=== PATIENT | male | born 1990 | race Caucasian/White ===

== ENCOUNTER 2024-05-17 09:29 | Outpatient (REF) | payer OTHER, SELFPAY ==
--- OUTSIDE RECORDS SUMMARY | 2024-05-17 10:42 | XMS_ITS ---
Author Organization [facility] Address [address] [place] [address] Care Team Providers Care Hoist Mechanic Name Role Phone MEMO LEON Primary Care Provider Memo Leon Unavailable [phone] Medications Medication SIG (Take, Route, Frequency, Duration) Notes Start Date End Date Status Escitalopram Oxalate 10 MG 1 tablet Oral ly Once a day for 90 02/28/2023 Active Encounters Encounter Location Date Provider Diagnosis [facility] [address] [place] [address] 02/28/2023 MEMO LEON Plan Of Treatment Medication Medication Name Sig Start Date Stop Date Notes Escitalopram Oxalate 10 MG 1 tablet Oral ly Once a day for 90 02/28/2023 DULoxetine HCl 30 MG TAKE 1 CAPSULE BY M OUTH EVERY DAY FOR 30 DAYS Progress Notes * Paula WHEELEROB:1990 ( 32 yo M)Acc No.[id number]:02/28/2023 Patient:?Tomi Wheeler :1990???Age:32 Y???Sex:Male Address:[address] [place], [address] * Refills? Stop DULoxetine HCl Capsule Delayed Release Particles, 30 MG, TAKE 1 CAPSULE BY MOUTH EVERY DAY FOR 30 DAYS Start Escitalopram Oxalate Tablet, 10 MG, Orally, 90, 1 tablet, Once a day, 90 * true * Date:? Generated for Annette high/Zakiya/eTransmitting on:?05/17/2024 10:42 AM EST
--- OUTSIDE RECORDS SUMMARY | 2024-05-17 10:42 | XMS_ITS | Referral Summary ---
Author Organization [facility] Address [address] [place] [address] Care Team Providers Care District Wildlife Manager Name Role Phone Memo Leon Primary Care Provider [phone] Allergies No known active allergies Medications rizatriptan WEBSITE DEVELOPER (MAXALT-WEBSITE DEVELOPER) 10 mg disintegrating tablet SMARTSI Tablet(s) By Mouth 1-2 Times Daily 3 Active Emgality Pen 120 mg/mL pen injector SMARTSI Milliliter (s) SUB-Q Once a Month 3 Active Social History Tobacco Use Types Packs/Day Years Used Date Smoking Tobacco: Never Assessed Sex and Gender Information Value Date Recorded Sex Assigned at Not on file Legal Sex Male 8:34 AM EST Gender Identity Not on file Sexual Orientation Not on file Last Filed Vital Signs Vital Sign Reading Time Taken Comments Blood Pressure 131/79 03/08/2023 9:37 AM EST Pulse 79 03/08/2023 9:37 AM EST Temperature 37.1 ??C (98.7 ??F) 03/08/2023 9:37 AM ES T Respiratory Rate 18 03/08/2023 9:37 AM EST Oxygen Saturation 97% 03/08/2023 9:37 AM EST Inhaled Oxygen Concentration - - Weight - - Height - - Body Mass Index - - Plan of Treatment Not on file Insurance [facility] Care Teams District Wildlife Manager Relationship Specialty Start Date End Date Memo Leon [address] [place] [address] PCP - General Internal Medicine 03/08/23
--- OUTSIDE RECORDS SUMMARY | 2024-05-17 10:42 | XMS_ITS | Clinical Summary ---
Author Organization [facility] it Address [address] [place] [address] Care Team Providers Care Air Pollution Inspector Name Role Phone Memo Leon MD Primary Care Provider Social History Tobacco Use Types Packs/Day Years Used Date Smoking Tobacco: Never Assessed Sex and Gender Information Value Date Recorded Sex Assigned at Not on file Legal Sex Male 1:13 AM EST Gender Identity Not on file Sexual Orientation Not on file Last Filed Vital Signs Vital Sign Reading Time Taken Comments Blood Pressure 118/70 07/15/2022 2:49 PM EDT Pulse 78 07/15/2022 2:49 PM EDT Temperature - - Respiratory Rate - - Oxygen Saturation - - Inhaled Oxygen Concentration - - Weight 62.1 kg (137 lb) 07/15/2022 2:49 PM EDT Height 177.8 cm (5' 10 ) 07/15/2022 2:49 PM EDT Body Mass Index 19.66 07/15/2022 2:49 PM EDT Plan of Treatment Health Maintenance Due Date Last Done Comments DTaP,Tdap,and Td Vaccines (1 - Tdap) 2011 Hepatitis B Vaccines (1 of 3 - 19+ 3-dose series) 2011 Depression Screening 04/16/2023 HIV Screening 04/16/2023 Hepatitis C Screening 04/16/2023 Social Influencers of Health Screening 04/16/2023 COVID-19 Vaccine ( - 2023-2 5 season) 2023 Influenza Vaccine (#1) 2023 HIB Vaccines Aged Out No longer eligi ble based on patient's age to complete this topic HPV Vaccines Aged Out No longer eligi ble based on patient's age to complete this topic Hepatitis A Vaccines Aged Out No long er eligible based on patient's age to complete this topic IPV Vaccines Aged Out No longer eligi ble based on patient's age to complete this topic MMR Vaccines Aged Out No longer eligi ble based on patient's age to complete this topic Meningococcal ACWY Vaccine Aged Out N o longer eligible based on patient's age to complete this topic Meningococcal B Vacine Aged Out No lo nger eligible based on patient's age to complete this topic Pneumococcal Vaccine: Pediat rics (0 to 5 Years) and At-Risk Patients (6 to 64 Years) Aged Out No longer eligible b ased on patient's age to complete this topic RSV Immunization Patients Un cali 20 months Aged Out No longer eligible b ased on patient's age to complete this topic Varicella Vaccines Aged Out No longer eligible based on patient's age to complete this topic Care Teams Air Pollution Inspector Relationship Specialty Start Date End Date Memo Leon MD PCP - General 07/02/22
--- OUTSIDE RECORDS SUMMARY | 2024-05-17 10:42 | XMS_ITS | Clinical Summary ---
Author Organization [facility] Address [address] [place] [address] Care Team Providers Care Near Eastern Archaeology Lecturer Name Role Phone Ana Hester MD Primary Care Provider [phone] Allergies No known active allergies Medications Medication Sig Dispensed Refills Start Date End Date Status naproxen (NAPROSYN) 500 MG tablet Take 1 tablet (500 mg total) by mouth 2 (two) times a day with meals. 40 tablet 0 10/04/2017 Active methocarbamol (ROBAXIN) 750 MG tablet Take 1 tablet (750 mg total) by mouth 3 (three) times a day as needed (muscle spasm). 40 tablet 0 10/04/2017 Active Social History Tobacco Use Types Packs/Day Years Used Date Smoking Tobacco: Never Smokeless Tobacco: Never Alcohol Use Standard Drinks/Week Comments No 0 (1 standard drink = 0.6 oz pur e alcohol) Sex and Gender Information Value Date Recorded Sex Assigned at Not on file Gender Identity Not on file Sexual Orientation Not on file Last Filed Vital Signs Vital Sign Reading Time Taken Comments Blood Pressure 101/62 10/04/2017 4:01 PM EDT Pulse 53 10/04/2017 4:01 PM EDT Temperature 37 ??C (98.6 ??F) 10/04/2017 4:01 PM EDT Respiratory Rate 16 10/04/2017 4:01 PM EDT Oxygen Saturation 100% 10/04/2017 4:01 PM EDT Inhaled Oxygen Concentration - - Weight - - Height - - Body Mass Index - - Plan of Treatment Health Maintenance Due Date Last Done Comments Hepatitis B Vaccines (1 of 3 - 3-dose series) 1992 Hepatitis C Screening 1992 COVID-19 Vaccine (#1) 1992 Depression Screening 2004 Preventative Health Evaluation 2010 DTap / Tdap / Td (1 - Tdap) 2011 Influenza Vaccine (#1) 2023 Pneumococcal Vaccine Aged Out No long er eligible based on patient's age to complete this topic RSV Ped < 20 months Aged Out No longe r eligible based on patient's age to complete this topic Care Teams Near Eastern Archaeology Lecturer Relationship Specialty Start Date End Date Ana Hester MD [address] [facility] [address] [place] [address] PCP - General Ship Steward 10/04/17
--- OUTSIDE RECORDS SUMMARY | 2024-05-17 10:43 | XMS_ITS ---
Author Organization 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 Name Role Phone MEMO LEON Primary Care Provider [phone] Memo Leon Unavailable [phone] Allergies No Known Allergies REASON FOR VISIT ANNUAL Medications Medication SIG (Take, Route, Frequency, Duration) Notes Start Date End Date Status DULoxetine HCl 30 MG TAKE 1 CAPSULE BY M OUT EVERY DAY FOR 30 DAYS for 90 Active SUMAtriptan Succinate 6 MG/0.5ML as directed Subcutaneous Once a day for 30 days Active Vitamin D (Ergocalciferol) 19100 UNIT 1 capsule Orally for 60 days Active Medrol (Romulo) 4 MG as directed Orally 1 for 5 days Not-Taking Omeprazole 20 MG 1 capsule Orally Onc e a day for 90 days Active Propranolol HCl 20 MG 1 tablet Orally On ce a day Active Depakote 500 MG as directed Orally d aily at night 08/28/2022 Not-Taking Albuterol Sulfate HFA 108 (90 Base) MCG/ACT 2 puff Inhalation every 4 hrs prn prn Active LORazepam 0.5 MG 1 tablet as needed Orally every 6 hrs for 14 days 07/01/2022 Not-Taking Rizatriptan Benzoate 10 MG 1 tablet Once a day for 30 days Active Topock Carbonate 300 MG 1 tablet at bed time Orally Once a day Active Social History Tobacco Use: Social History Observation Description Date Details (start date - stop date) Current some da y smoker NA - NA Tobacco Use/Smoking Question Answer Notes Are you a current some day smoker Additional Findings: Tobacco User Light cigarett e smoker ((1-9 cigs/day) Alcohol Screen (Audit-C) Question Answer Notes Did you have a drink containing alcohol in the p ast year? No Points 0 Interpretation Negative Tobacco use other than smoking: Question Answer Notes Are you an other tobacco user? Yes Section Notes: Living with Hannah Tompkins for past 6 years. Met her on line . She is a professional invasive manager and has her own business.They have a daughter Danny born August 09, 2021. Live abel 2 family unit at [address] [place] [address] [place] [address] Pays 4950 rent plus utilities. Looking around to buy an affordable house Education: High School [employer] 2010. Took 2 yrs off. The moved to [facility] on Dec 2013 and did 90 hours of classes at [employer]. 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 Moved back to [place] in 2016 WORK Hx: Works at [employer] in [facility].[address] Leaves at 7.30 am and finishes at 6.15 pm . Works friday through . Gets paid $27/hour per job. Makes about $45K a year Hobbies: used to race dirtbikes . Played Lacrosse and basketball in school. Rode Mbikses Getting tattoos(all over body) Hanging outwith best friens from school Emigdio Reyes . Lives in [place] Single Has a son Tom Meek Personal HX: Smoked cigarettes from age 20 to 25 yr Quits Smokes MJ joints after coming from work. Admits to smoking heavily Uses the baer . Problems Problem Type SNOMED Code ICD Code Onset Dates Problem Status W/U Status Risk Notes Problem Chronic cluster headache (747787034) Intractable chronic cluster headache (G44.021) Active confirmed Saw neurologist Dr. Almanza on 07/08/22 He gave him Depakote ER and a course of tapering steroids. His neuro exam was unremarkable. 10/24/22 Will refill Rizatripan till he sees Dr Almanza on 11/04/22 Problem 99929318 Weight loss (R63.4) Active confirmed Problem 994579476 Early satiety (R68.81) Active confirmed Problem 408911173 Annual physical exam (Z00.00) Active confirmed Problem 54201005 Vitamin D deficiency (E55.9) Active confirmed Will send script for 50,000 units Vital Signs Temperature 98.7 degrees Fahrenheit 12/31/19 23 Blood pressure systolic 100 mm Hg 12/31/19 23 Blood pressure diastolic 60 mm Hg 023 Heart Rate 74 /min 12/30/2022 Height 70 in 12/30/2022 Weight 143 lbs 12/30/2022 BMI 20.52 kg/m2 12/30/2022 Oximetry 98 % 12/30/2022 Encounters Encounter Location Date Provider Diagnosis [facility] [address] [facility] [address] [place] [address] 12/30/2022 MEMO LEON Intractable chronic cluster headache G44.021 ; Annual physical exam Z00.00 ; Weight loss R63.4 ; Early satiety R68.81 and Vitamin D deficiency E55.9 Assessments Encounter Date Diagnosis (ICD Code) Assessment Notes Treatment Notes Treatment Clinical Notes Section Notes 12/30/2022 Intractable chronic cluster headache (ICD-10 - G44.021) Saw neurologist Dr. Almanza on 07/08/22 He gave him Depakote ER and a course of tapering steroids. His neuro exam was unremarkable. 10/24/22 Will refill Rizatripan till he sees Dr Almanza on 11/04/22 12/30/2022 Annual physical exam (ICD-10 - Z00.00) 12/30/2022 Weight loss (ICD-10 - R63.4) 12/30/2022 Early satiety (ICD-10 - R68.81) 12/30/2022 Vitamin D deficiency (ICD-10 - E55.9) Will send script for 50,000 units Plan Of Treatment Medication Medication Name Sig Start Date Stop Date Notes Vitamin D (Ergocalciferol) 43959 UNIT 1 capsule Orally for 60 days Omeprazole 20 MG 1 capsule Orally Onc e a day for 90 days Next Appt Details Follow Up: 3 Months, Reason: Progress Notes * Paula OLIVOOB:1990 ( 32 yo M)Acc No.[id number]:12/30/2022 Progress Notes Patient:?Tomi Olivo Provider:?Memo Leon MD :1990???Age:32 Y???Sex:Male Surya e:12/30/2022 Address:[address], [address], [id number] Subjective: * Chief Complaints: * ???ANNUAL * HPI: ???Depression Screening:?PHQ-9?Little interest or pleasure in doing things?Nearly every day ?Feeling down, depressed, or hopeless?Not at all ?Trouble falling or staying asleep, or sleeping too much?Several days ?Feeling tired or having little energy?Several days ?Poor appetite or overeating?Several days ?Feeling bad about yourself or that you are a failure, or have let yourself or your family down?Not at all ?Trouble concentrating on things, such as reading the newspaper or watching television?Several days ?Moving or speaking so slowly that other people could have noticed; or the opposite, being so fidgety or restless that you have been moving around a lot more than usual?Not at all ?Thoughts that you would be better off or of hurting yourself in some way?Not at all ?Total Score?7 ?Interpretation?Mild Depression ???New/Follow-up Patient Consult:? 12/30/22 Looking well. On Duloxetine one a day, Propranolol 20 mg. Topock Carbonate 10 mg . Has been tapering off the medicines Has had severe Gi upset with the daily 3 doses. Took the Emgality Injection last month on 12/02/[address] Almanza and gave hime samples of 2 injections.Also has Rizatriptin he uses prn He did not take the prednisone He felt migraine PHILLIP for 2 weeks Had 2-[address] Almanza today to grt the Emgality script.Has lost 5 lbs weight. Uses THC at night from a [facility] in [place]. ?10/24/22 Complaining of intractable migraine headaches Has appointment with neurologist Dr Almanza on 11/04/22 . Has ran out of Rizatriptan prescribed by his previous doctor Requesting refills till he sees Dr Almanza. ? Passed the exam. No more exam . Less stress now. On Depakote for a month and took the Prednisone tapering dose. Had amazing relief with that combination Had the best energy and could do things after the prednisone was stopped . his energy level came down. Saw Dr Almanza and he decreased the Depakote 500 mg at night as he was having some dizziness. Had 2 episodes of Migraine last week and had to take Rizatriptan. Had 2 minor PHILLIP also. Taking sertraline 100 mg. Feels it has stabilized his mood. Less anxious and doesnt get angry andirritable like before. I suggested he can try duloxetine which can also help his migraine. He is open to the trial .Ill send him 30 mg and he can up it to 60 mg if no side effects. I asked him to keep a PHILLIP diary and and ask Dr Almanza about prescribing him Emgalty injections. ?Went to [place], [place] for 5 days vacation with Niya and Danny(13 mnths) near the [facility] and also saw the eJamming fest. Enjoyed it. Still looking around to buy a house. Wants to come to the office at next visit. ?07/15/22 3rd encounter. saw neurologist Dr Almanza on 07/09/22 Diagnosed him with Cluster Hradache Syndrome. Started on Depakote ER and a tapering course of steroids. Reviewed his labs with him . All within normal limits. Has low Vitamin D only. Meds reviewed On Sertraline and Lorazepam started by me on last visit. Hasnt noticed any changes or side effects Told to double the dose. Lorazepam makes him feel tired Made him relax though prn. 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 I told him to just increase the sertraline to 100 mg and take Vitamin D3 2000 units supplement. After he finishes the exam he will stop the Topamax and start the Depakote and then the steroids I clayton call him after 4 weeks ?07/01/22 SEcond encounter. Pleasant male wearint shorts and T shirt Has visible tatoos on all his limbs. Had MRI [facility] Brain at [facility] . No significant change. Forgot to get the blood tests. Will get it done today. Went to [place] on June 17 to . Has not been getting he migraines as intense before 10/10 for an hour. Now the migraine is 4/10 and lingers all day. Using Topamax 25 mg bid. Uses Rizatriptan one every other day and gives relief after 30 minutes and gives relief for an hour. I looked at him and he looks depressed On questioning he did admit that he has lost interest in things he enjoyed Finds himself withdrawn andanxious. Sleeo is okay. Appetite is bad as he feels his stomach his hollow and he cannot eat. 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 Typicall preceded by white dots and followed by full blown headache. Mother has similar attacks, but gets them twice a year amelia. Older brother Deepak had similar ocular migraine PHILLIP in his teens but now he is asymtomatic. His PCP was Dr Ana Hester at [facility]. He had referred him to see a neurologist Dr Jose L Boston at [facility] he did an MRI brain at [facility] MRI on 08/11/2019 and it read as decent of the cerebellar tonsils 6 mm below the foramen magnum . It may reflect Chiari Malformation and differential includes idiopathic intracral hypotension. He was put on Topimarate 50 mg once a day which he has been taking daily in 2019 as he had the worse year of migraines . It did reduce his migraine episodes but he stopped it last year as he felt he had foggy brain and memory lapses and felt it was not giving him any benefit. He has been taking a selective serotonin receptor agonis Rizatriptan(Maxalt) 10 mg to gain relief. For the past two months the ocular migraineas been getting worse waking him up at night. He also restarted the anticonvulsant tomiramate(Topamax) recently when he had to travel for work to [place] and he was afraid he would not be able to work because of the headache . Lat night he had to take Maxalt after comimg back from work and also at night when he woke up from sleep with the headache. Dr. Boston has since retired and he wants to see a new neurologist. He noticed that tobacco use triggers the headache and he stopped it 7 years ago. He feels use of daily Marijuana smoking in form of rolling or vape provides him some relief. He doesnt use alcohol. He denies any use of recreatiol drugs or other OTC medications. Complaining of intractable migraine headaches Has appointment with neurologist Dr Almanza on 11/04/22 . Has ran out of Rizatriptan prescribed by his previous doctor Requesting refills till he sees Dr Almanza. ? Passed the exam. No more exam . Less stress now. On Depakote for a month and took the Prednisone tapering dose. Had amazing relief with that combination Had the best energy and could do things after the prednisone was stopped . his energy level came down. Saw Dr Almanza and he decreased the Depakote 500 mg at night as he was having some dizziness. Had 2 episodes of Migraine last week and had to take Rizatriptan. Had 2 minor PHILLIP also. Taking sertraline 100 mg. Feels it has stabilized his mood. Less anxious and doesnt get angry andirritable like before. I suggested he can try duloxetine which can also help his migraine. He is open to the trial .Ill send him 30 mg and he can up it to 60 mg if no side effects. I asked him to keep a PHILLIP diary and and ask Dr Almanza about prescribing him Emgalty injections. ?Went to [place], [place] for 5 days vacation with Jojo(13 mnths) near the [facility] and also saw the eJamming fest. Enjoyed it. Still looking around to buy a house. Wants to come to the office at next visit. ?07/15/22 3rd encounter. saw neurologist Dr Almanza on 07/09/22 Diagnosed him with Cluster Hradache Syndrome. Started on Depakote ER and a tapering course of steroids. Reviewed his labs with him . All within normal limits. Has low Vitamin D only. Meds reviewed On Sertraline and Lorazepam started by me on last visit. Hasnt noticed any changes or side effects Told to double the dose. Lorazepam makes him feel tired Made him relax though prn. 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 I told him to just increase the sertraline to 100 mg and take Vitamin D3 2000 units supplement. After he finishes the exam he will stop the Topamax and start the Depakote and then the steroids I clayton call him after 4 weeks ?07/01/22 SEcond encounter. Pleasant male wearint shorts and T shirt Has visible tatoos on all his limbs. Had MRI of Brain at [facility] . No significant change. Forgot to get the blood tests. Will get it done today. Went to [place] on June 17 to . Has not been getting he migraines as intense before 10/10 for an hour. Now the migraine is 4/10 and lingers all day. Using Topamax 25 mg bid. Uses Rizatriptan one every other day and gives relief after 30 minutes and gives relief for an hour. I looked at him and he looks depressed On questioning he did admit that he has lost interest in things he enjoyed Finds himself withdrawn andanxious. Sleeo is okay. Appetite is bad as he feels his stomach his hollow and he cannot eat. 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 Typicall preceded by white dots and followed by full blown headache. Mother has similar attacks, but gets them twice a year amelia. Older brother Deepak had similar ocular migraine PHILLIP in his teens but now he is asymtomatic. His PCP was Dr Ana Hester at [facility]. He had referred him to see a neurologist Dr Jose L Boston at [facility] he did an MRI brain at [facility] MRI on 08/11/2019 and it read as decent of the cerebellar tonsils 6 mm below the foramen magnum . It may reflect Chiari Malformation and differential includes idiopathic intracral hypotension. He was put on Topimarate 50 mg once a day which he has been taking daily in 2019 as he had the worse year of migraines . It did reduce his migraine episodes but he stopped it last year as he felt he had foggy brain and memory lapses and felt it was not giving him any benefit. He has been taking a selective serotonin receptor agonis Rizatriptan(Maxalt) 10 mg to gain relief. For the past two months the ocular migraineas been getting worse waking him up at night. He also restarted the anticonvulsant tomiramate(Topamax) recently when he had to travel for work to [place] and he was afraid he would not be able to work because of the headache . Lat night he had to take Maxalt after comimg back from work and also at night when he woke up from sleep with the headache. Dr. Boston has since retired and he wants to see a new neurologist. He noticed that tobacco use triggers the headache and he stopped it 7 years ago. He feels use of daily Marijuana smoking in form of rolling or vape provides him some relief. He doesnt use alcohol. He denies any use of recreatiol drugs or other OTC medications. * ROS:?General/Constitutional:?Denies?Change in appetite.?Denies?Chills.?Denies?Fatigue.?Denies?Fever.?Denies?Headache.?Denies?L ightheadedness.?Denies?Sleep disturbance.?Denies?Weight gain.?Denies?Weight loss.?Allergy/Immunology:?AIDS?denies.?Denies?Blistering of skin.?Denies?Congestion.?Denies?Cough.?Denies?HIV Positive,?denies.?Denies?Hives.?Denies?Itching.?Denies?Rash.?Denies?Seasonal allergies, denies.?Denies?Sneezing.?Denies?Unusual reaction to medication(s), food, animals or insects.?Denies?Watery eyes.?Denies?Wheezing.?You or family member have problems with anesthesia?denies.?Respiratory:?Denies?Asthma,?denies.?Denies?Breathing pattern.?Denies?Breathing problems,?denies.?Denies?Chest pain.?Denies?Cough.?Denies?Hemoptysis.?Denies?Pain with inspiration.?Denies?Pneumonia,?denies.?Denies?Shortness of breath,?denies.?Denies?Shortness of breath at rest.?Denies?Shortness of breath with exertion.?Denies?Sputum production.?Denies?Tuberculosis,?denies.?Denies?Wheezing.?Cardiovascular:?Denies?Chest pain.?Denies?Chest pain at rest.?Denies?Chest pain with exertion.?Denies?Claudication.?Denies?Cyanosis.?Denies?Difficulty laying flat.?Denies?Dizziness.?Denies?Dyspnea on exertion.?Denies?Fluid accumulation in the legs.?Denies?Heart murmur,?denies.?Denies?Heart problems,?denies.?Denies?High blood pressure,?denies.?Denies?Irregular heartbeat,?denies.?Denies?Orthopnea.?Denies?Palpitations,?denies.?Denies?Rheumat ic fever,?denies.?Denies?Shortness of breath.?Denies?Weakness.?Denies?Weight gain.?Gastrointestinal:?Denies?Abdominal pain.?Denies?Blood in stool.?Denies?Change in bowel habits.?Denies?Colitis,?denies.?Denies?Constipation.?Denies?Decreased appetite.?Denies?Diarrhea.?Denies?Difficulty swallowing.?Denies?Exposure to hepatitis.?Denies?Heartburn.?Denies?Hematemesis.?Denies?Hepatitis,?denies.?Denie s?Nausea.?Denies?Rectal bleeding.?Denies?Stomach problems,?denies.?Denies?Vomiting.?Denies?Weight loss.?Genitourinary:?Denies?Abdominal pain/swelling.?Denies?Blood in urine.?Denies?Difficulty urinating.?Denies?Frequent urination.?Denies?Heavy uterine bleeding.?Denies?Kidney problems,?denies.?Denies?Pain in lower back.?Denies?Painful urination.?Neurologic:?Patient complaining of?Ocular migraine left side since teens Getting worse.?Denies?Balance difficulty.?Denies?Coordination.?Denies?Difficulty speaking.?Denies?Dizziness.?Denies?Fainting.?Denies?Gait abnormality.?Denies?Headache.?Denies?Irritability.?Denies?Loss of strength.?Denies?Loss of use of extremity.?Denies?Low back pain.?Denies?Memory loss.?Denies?Pain.?Denies?Paralysis.?Denies?Seizures.?Stroke?Denies,?denies.?Den ies?Tics.?Denies?Tingling/Num bness.?Denies?Transient loss of vision.?Denies?Tremor.?Psychiatric:?Denies?Anxiety.?Denies?Auditory/visual hallucinations.?Denies?Delusions.?Denies?Depressed mood.?Denies?Difficulty sleeping.?Denies?Eating disorder.?Denies?Loss of appetite.?Denies?Mental or Physical abuse.?Denies?Nervous breakdown,?denies.?Denies?Psychiatric condition,?denies.?Denies?Stressors.?Denies?Substance abuse.?Denies?Suicidal thoughts.? * Medical History:? * Surgical History:? * Ocular Surgical History:? * Hospitalization/Major Diagno stic Procedure:? * Family History:? Born in [place] and raised in [facility]. Parents when he 12 yrs old. Always fighting. Father Lázaro Olivo is 63 years old Never remarried . 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 No migraine Doesnt know his health status . Mother Shirley Olivo 63 yrs. Never remarried . 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 She lives in [facility] to look after her 93 year father. He is close to her and lived with her mostly after the divorce. Descibes childhood being uneasy as parents fought but both always put the children first and father introduced him to dit bikes and racing. He played lacrosse and basketball in school. 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 Single No migraine #Deepak 33 yrs Worked in [employer] all his working life . Moved recently to [facility] [place] with hisgirl friend Has a antionette Carvajal 1 yr and another Tom 6 months . * Social History:?Tobacco Use:?Tobacco Use/Smoking?Are you a?current some day smoker ?Additional Findings: Tobacco User?Light cigarette smoker ((1-9 cigs/day) ?Tobacco use other than smoking?Are you an other tobacco user??Yes ???Drugs/Alcohol:?Alcohol Screen (Audit-C)?Did you have a drink containing alcohol in the past year??No ?Points?0 ?Interpretation?Negative ?Do you smoke marijuana?: Admits daily. ?Do you drink alcohol?: Yes rarely. ???Living with Hannah Tompkins for past 6 years. Met her on line . She is a professional invasive manager and has her own business.They have a daughter Danny born August 09, 2021. Live abel 2 family [address] at [address] [place] [address] Pays 4950 rent plus utilities. Looking around to buy an affordable house Education: High School [employer] 2010. Took 2 yrs off. The moved to [facility] on Dec 2013 and did 90 hours of classes at [employer]. 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 Works friday through . Gets paid $27/hour per job. Makes about $45K a year Hobbies: used to race dirtbikes . Played Lacrosse and basketball in school. Rode Kayleeses Getting tattoos(all over body) Hanging outwith best friens from school Emigdio Reyes . Lives in [place] Single Has a son Tom Meek Personal HX: Smoked cigarettes from age 20 to 25 yr Quits Smokes MJ joints after coming from work. Admits to smoking heavily Uses the baer . * Medications:?TakingLithium C arbonate 300 MG Tablet 1 tablet at bedtime Orally Once a dayPropranolol HCl 20 MG Tablet 1 tablet Orally Once a dayAlbuterol Sulfate HFA 108 (90 Base) MCG/ACT Aerosol Solution 2 puff Inhalation every 4 hrs prn, Notes: prnRizatriptan Benzoate 10 MG Tablet 1 tablet Once a dayDULoxetine HCl 30 MG Capsule Delayed Release Particles TAKE 1 CAPSULE BY MOUTH EVERY DAY FOR 30 DAYS SUMAtriptan Succinate 6 MG/0.5ML Solution Auto-injector as directed Subcutaneous Once a dayTaking Topock Carbonate 300 MG Tablet 1 tablet at bedtime Orally Once a dayTaking Propranolol HCl 20 MG Tablet 1 tablet Orally Once a dayTaking Albuterol Sulfate HFA 108 (90 Base) MCG/ACT Aerosol Solution 2 puff Inhalation every 4 hrs prn, Notes: prnTaking Rizatriptan Benzoate 10 MG Tablet 1 tablet Once a dayTaking DULoxetine HCl 30 MG Capsule Delayed Release Particles TAKE 1 CAPSULE BY MOUTH EVERY DAY FOR 30 DAYS Taking SUMAtriptan Succinate 6 MG/0.5ML Solution Auto-injector as directed Subcutaneous Once a dayNot-TakingDepakote 500 MG Tablet Delayed Release as directed Orally daily at nightLORazepam 0.5 MG Tablet 1 tablet as needed Orally every 6 hrsMedrol (Romulo) 4 MG Tablet as directed Orally 1Medication List reviewed and reconciled with the patientNot-Taking Depakote 500 MG Tablet Delayed Release as directed Orally daily at nightNot-Taking LORazepam 0.5 MG Tablet 1 tablet as needed Orally every 6 hrsNot-Taking Medrol (Romulo) 4 MG Tablet as directed Orally 1Medication List reviewed and reconciled with the patient * Allergies:?N.K.D.A.no[Allerg ies Verified] Objective: * Vitals:?Temp:98.7 F, HR:74 / min, BP:100/60 mm Hg, Wt:143 lbs, BMI:20.52 Index, Ht: 70 in, Oxygen sat %:98 %, Ht-cm: 177.8 cm, Wt-k.86 kg. * ???Past Orders: ???Lab:VITAMIN D, 25-HYDROXY (Order Date - 07/01/2022) (Collection Date - 07/01/2022) ? Value Reference Range ?VITAMIN D, 25-HYDROXY 15 L 30-80 - ng/mL ???Lab:COMPREHENSIVE METABOL IC PANEL (Order Date - 07/01/2022) (Collection Date - 07/01/2022) ? Value Reference Range ?ALBUMIN 3.9 3.2-5.0 - G/ dL ?ALK PHOS 45 42-121 - U/ L ?SGPT 26 10-60 - U/L ?ANION GAP 2 L 3-11 - ?SGOT 16 10-42 - U/L ?BILI,TOTAL 0.4 0.0-1.4 - mg/dL ?BUN 19 5-25 - mg/dL ?CALCIUM 9.1 8.5-10.5 - m g/dL ?CHLORIDE 109 96-110 - mm ol/L ?CO2 28 21-32 - mmol/L ?CREAT 0.81 0.7-1.3 - mg/d L ?GLOMERULAR FILTRATION RATE 122 >60 - ?GLUCOSE 88 70-100 - mg/ dL ?POTASSIUM 4.4 3.5-5.5 - mmol/L ?SODIUM 139 135-145 - mEq /L ?TOTAL PROTEIN 6.6 6.0-8. 0 - G/dL ???Lab:CBC (Order Date - ) (Collection Date - 07/01/2022) ? Value Reference Range ?HEMATOCRIT 41.1 L 42-54 - % ?HEMOGLOBIN 13.8 13.5-17.5 - g/dL ?MCH 33.1 H 27-32 - pg ?MCHC 33.6 32-37 - g/dL ?MCV 98.6 H 79-98 - fL ?MEAN PLATELET VOLUME 10.5 7-11 - fL ?NRBC # AUTO DIFF 0.00 <0. 1 - x10-3/uL ?NRBC % AUTO DIFF 0.0 <1 - % ?PLT COUNT 174 130-400 - x10-3/uL ?RBC 4.2 L 4.5-5.5 - x10-6 /uL ?RDW 12.3 11-15 - % ?WBC 5.8 4.8-10.8 - x10- 3/uL * Examination: ???General Examination: ?GENERAL APPEARANCE:?Lanky male. Whole body , limbs, fingers covered with tattoos??no acute distress, well developed, well nourished.?HEAD:?normocephalic, atraumatic.?EYES:?pupils equal, round, reactive to light and accommodation.?EARS:?normal.?ORAL CAVITY:?mucosa moist.?THROAT:?clear.?NECK/THYROID:?neck supple, full range of motion, no cervical lymphadenopathy.?SKIN:?no suspicious lesions, warm and dry.?HEART:?no murmurs, regular rate and rhythm, S1, S2 normal.?LUNGS:?clear to auscultation bilaterally.?ABDOMEN:?normal, bowel sounds present, soft, nontender, nondistended.?EXTREMITIES:?no clubbing, cyanosis, or edema.?NEUROLOGIC:?nonfocal, motor strength normal upper and lower extremities, sensory exam intact.? Assessment: * Assessment: 1.?Annual physical exam - Z0 0.00 (Primary)?2.?Intractable chronic cluster headache - G44.021, Saw neurologist Dr. Almanza on 07/08/22 He gave him Depakote ER and a course of tapering steroids. His neuro exam was unremarkable. 10/24/22 Will refill Rizatripan till he sees Dr Almanza on 11/04/22?3.?Weight loss - R63.4?4.?Early satiety - R68.81?5.?Vitamin D deficiency - E55.9, Will send script for 50,000 units? Plan: * Treatment: 2.?Vitamin D deficiency? Start Vitamin D (Ergocalciferol) Capsule, 05407 UNIT, 1 capsule, Orally, 60 days, 12.?? * Procedure Codes:? * Follow Up:?3 Months Care Plan: * Problems:? * Billing Information: * Visit Code:? 31499 Preventive Care Est Pt. Age 18-39. * Procedure Codes:? Care Plan Details* * Sign off status: Completed Addendum: * ? true * Provider:?Memo Leon MD Date:?2022 Generated for Annette high/Zakiya/Dmitriy on:?05/17/2024 10:42 AM EST History and Physical Notes * HPI (History of Present Illness) Category Sub-Category Detail Notes Category Not es Depression Screening PHQ-9 Little inte rest or pleasure in doing things: Nearly every day Feeling down, depressed, or hopeless: No t at all Trouble falling or staying asleep, or sl eeping too much: Several days Feeling tired or having little energy: S everal days Poor appetite or overeating: Several day s Feeling bad about yourself o r that you are a failure, or have let yourself or your family down: Not at all Trouble concentrating on thi ngs, such as reading the newspaper or watching television: Several days Moving or speaking so slowly that other people could have noticed; or the opposite, being so fidgety or restless that you have been moving around a lot more than usual: Not at all Thoughts that you would be b dorinda off or of hurting yourself in some way: Not at all Total Score: 7 Interpretation: Mild Depression Examination Category Sub-Category Detail Notes Category Not es General Examination GENERAL APPEARANCE: Reina walsh. Whole body , limbs, fingers covered with tattoos no acute distress, well developed, well nourished HEAD: normocephalic, atrau matic EYES: pupils equal, round, reactive to light and accommodation EARS: normal THROAT: clear NECK/THYROID: neck supple, full ra nge of motion, no cervical lymphadenopathy HEART: no murmurs, regular rate and rhythm, S1, S2 normal LUNGS: clear to auscultatio n bilaterally ABDOMEN: normal, bowel sounds present, soft, nontender, nondistended NEUROLOGIC: nonfocal, motor stre ngth normal upper and lower extremities, sensory exam intact SKIN: no suspicious lesion s, warm and dry EXTREMITIES: no clubbing, cyanosi s, or edema ORAL CAVITY: mucosa moist
--- OUTSIDE RECORDS SUMMARY | 2024-05-17 10:43 | XMS_ITS ---
Author Organization [facility] Address [address] [place] [address] Care Team Providers Care Sample Maker Original Name Role Phone MEMO LEON Primary Care Provider [phone] Memo Leon Unavailable [phone] REASON FOR VISIT FIX SCRIPT Medications Medication SIG (Take, Route, Frequency, Duration) Notes Start Date End Date Status Vitamin D (Ergocalciferol) 70821 UNIT 1 capsule Orally WEEKLY for 60 days Active Encounters Encounter Location Date Provider Diagnosis [facility] [address] [place] [address] 01/03/2023 MEMO LEON Vitamin D deficiency E55.9 Assessments Encounter Date Diagnosis (ICD Code) Assessment Notes Treatment Notes Treatment Clinical Notes Section Notes 01/03/2023 Vitamin D deficiency (ICD-10 - E55.9) Will send script for 50,000 units Plan Of Treatment Medication Medication Name Sig Start Date Stop Date Notes Vitamin D (Ergocalciferol) 99517 UNIT 1 capsule Orally WEEKLY for 60 days Progress Notes * Paula WHEELEROB:1990 ( 32 yo M)Acc No.[id number]:01/03/2023 Patient:?Tomi Wheeler :1990???Age:32 Y???Sex:Male Address:[address], [place], [address] * Refills? Start Vitamin D (Ergocalciferol) Capsule, 40688 UNIT, Orally, 12, 1 capsule, WEEKLY, 60 days, Refills=0 * true * Date:? Generated for Annette high/Zakiya/Michaelaitting on:?05/17/2024 10:42 AM EST
--- OUTSIDE RECORDS SUMMARY | 2024-05-17 10:43 | XMS_ITS | Clinical Summary ---
Author Organization [facility] Address [address] [place] [address] Care Team Providers Care Site Head Name Role Phone Memo Leon Primary Care Provider [phone] Allergies No known active allergies Medications rizatriptan INSPECTOR MATERIALS AND PROCESSES (MAXALT-INSPECTOR MATERIALS AND PROCESSES) 10 mg disintegrating tablet SMARTSI Tablet(s) By [...] Health Maintenance Due Date Last Done Comments HIV Screening 1990 Hepatitis C Screening 1990 Varicella Vaccines (1 of 2 - 13+ 2-dose series) 2005 Hepatitis B Vaccines (1 of 3 - 19+ 3-dose series) 2011 DTaP,Tdap,and Td Vaccines (1 - Tdap) 2014 COVID-19 Vaccine (2023-2 5 season) 2023 Influenza Vaccine (#1) 2023 Alcohol/Substance Use Screening 03/17/2024 Depression Screening and Follow-Up 03/17/2024 Social Drivers of Health Brynn ual Screening 03/17/2024 RSV Vaccine (60+ years old a nd patients) (1 - 1-dose 75+ series) 2067 Pneumococcal Vaccine: Pediat lexus (0-5 Years) and At-Risk Patients (6-50 Years) Aged Out No longer eligible b ased on patient's age to complete this topic Insurance [facility] Care Teams Site Head Relationship Specialty Start Date End Date Memo Leon [address] [place] [address] PCP - General Internal Medicine 03/08/23
--- OUTSIDE RECORDS SUMMARY | 2024-05-17 10:43 | XMS_ITS | Patient Health Record ---
Author Organization [facility] Address [address] [place] [address] Care Team Providers Care Victims Advocate Clerk/Specialist Name Role Phone MEMO LEON Primary Care Provider [phone] Memo Leon Unavailable [phone] Allergies No Known Allergies Reason For Referral No Information Medications Medication SIG (Take, Route, Frequency, Duration) Notes Start Date End Date Status SUMAtriptan Succinate 6 MG/0.5ML as directed Subcutaneous Once a day for 30 days Active Medrol (Romulo) 4 MG as directed Orally 1 for 5 days Not-Taking Omeprazole 20 MG 1 capsule Orally Onc e a day for 90 days Active Natalia Carbonate 300 MG 1 tablet at bed time Orally Once a day Active Propranolol HCl 20 MG 1 tablet Orally On ce a day Active Depakote 500 MG as directed Orally d aily at night 08/28/2022 Not-Taking Albuterol Sulfate HFA 108 (90 Base) MCG/ACT 2 puff Inhalation every 4 hrs prn prn Active Escitalopram Oxalate 10 MG 1 tablet Orally Once a day for 90 02/28/2023 Active LORazepam 0.5 MG 1 tablet as needed Orally every 6 hrs for 14 days 07/01/2022 Not-Taking Vitamin D (Ergocalciferol) 51275 UNIT 1 capsule Orally WEEKLY for 60 days Active Rizatriptan Benzoate 10 MG 1 tablet Once a day for 30 days Active Social History Tobacco Use: Social History [...] on line . 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 Live abel 2 family unit at [address] [place] [address] [address] [place] [address] Pays 4950 rent plus utilities. Looking around to buy an affordable house Education: [employer] 2010. Took 2 yrs off. The moved to [facility] on Dec 2013 and did 90 hours of classes at [employer]. 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 Moved back to [place] in 2016 WORK Hx: Works at [employer] in [facility].[address] [place] at 7.30 am and finishes at 6.15 pm . Works friday through . Gets paid $27/hour per job. Makes about $45K a year Hobbies: used to race dirtbikes . Played Lacrosse and basketball in school. Rode Kayleeses Getting tattoos(all over body) Hanging outwith best friens from school Emigdio Reyes . Lives in [place] Has a son Tom Meek Personal HX: Smoked cigarettes from age 20 to 25 yr Quits Smokes MJ joints after coming from work. Admits to smoking heavily Uses the baer . Living with Hannah Tompkins for past 6 years. Met her on line . 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 Live abel 2 family unit at [address] [place] [address] [address] [place] [address] Pays 4950 rent plus utilities. Looking around to buy an affordable house Education: [employer] 2010. Took 2 yrs off. The moved to [facility] on Dec 2013 and did 90 hours of classes at [employer]. 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 Got certified to repair Abeles Rai, Juanita and Yamaha. 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 Works friday through . Gets paid $27/hour per job. Makes about $45K a year Hobbies: used to race dirtbikes . Played Lacrosse and basketball in school. Rodselma Mbasmitases Getting tattoos(all over body) Hanging outwith best friens from school Emigdio Reyes . Lives in [place] Has a son Tom 4 Personal HX: Smoked cigarettes from age 20 to 25 yr Quits Smokes MJ joints after coming from work. Admits to smoking heavily Uses the baer . Living with Hannah Tompkins for past 6 years. Met her on line . 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 Live abel 2 family unit at [address] [place] [address] Pays 4950 rent plus utilities. Looking around to buy an affordable house Education: High School [employer] 2010. Took 2 yrs off. The moved to [facility] on Dec 2013 and did 90 hours of classes at [employer]. 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 Got certified to repair Abeles Rai, Juanita and Yamaha. 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 Works friday through . Gets paid $27/hour per job. Makes about $45K a year Hobbies: used to race dirtbikes . Played Lacrosse and basketball in school. Rodselma Pageses Getting tattoos(all over body) Hanging outwith best friens from school Emigdio Reyes . Lives in [place] Has a son Tom 4 Personal HX: Smoked cigarettes from age 20 to 25 yr Quits Smokes MJ joints after coming from work. Admits to smoking heavily Uses the baer . Living with Hannah Tompkins for past 6 years. Met her on line . 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 Live abel 2 family unit at [address] [place] [address] Pays 4950 rent plus utilities. Looking around to buy an affordable house Education: High School [employer] 2010. Took 2 yrs off. The moved to [facility] on Dec 2013 and did 90 hours of classes at [employer]. 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 Got certified to repair Abe Rai, Juanita and Yamaha. Moved back to [place] in 2016 WORK Hx: Works at [employer] in [facility].[address] [place] at 7.30 am and finishes at 6.15 pm . Works friday through . Gets paid $27/hour per job. Makes about $45K a year Hobbies: used to race dirtbikes . Played Lacrosse and basketball in school. Rode Kayleeses Getting tattoos(all over body) Hanging outwith best friens from school Emigdio Reyes . Lives in [place] Has a son Tom Meek Personal HX: Smoked cigarettes from age 20 to 25 yr Quits Smokes MJ joints after coming from work. Admits to smoking heavily Uses the baer . Living with Hannah Tompkins for past 6 years. Met her on line . 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 Live abel 2 family unit at [address] [place] [address] Pays 4950 rent plus utilities. Looking around to buy an affordable house Education: [employer] 2010. Took 2 yrs off. The moved to [facility] on Dec 2013 and did 90 hours of classes at [employer]. 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 Got certified to repair Abe Rai, Juanita and Yamaha. Moved back to [place] in 2017 WORK Hx: Works at [employer] in [facility].[address] [place] at 7.30 am and finishes at 6.15 pm . Works friday through . Gets paid $27/hour per job. Makes about $45K a year Hobbies: used to race [employer] . Played Lacrosse and basketball in school. Mariaelena Robins Getting tattoos(all over body) Hanging outwith best friens from school Emigdio Reyes . Lives in [place] Has a son Tom Meek Personal HX: Smoked cigarettes from age 20 to 25 yr Quits Smokes MJ joints after coming from work. Admits to smoking heavily Uses the baer . Problems Problem Type SNOMED Code ICD Code Onset Dates Problem Status W/U Status Risk Notes Problem 667911951 Early satiety (R68.81) Active confirmed Problem 81885179 Weight loss (R63.4) Active confirmed Problem Mixed anxiety and depressive disorder (821546732) Depression with anxiety (F41.8) Active confirmed 07/01/22 Thinks it started in late 2020 with change in mood and was mild and bearable in 2020 and noticed it in March 2022 . Has lost interest in things he loved eg his job, taking care of his daughter, do things with Hannah. Agrees to start on SSRI and short acting benzo and see me regularly. 09/24/22 Tried Sertraline 50 mg and increased to 100 mg Helping I will switch to Duloxetine 30 mg today as it may help his PHILLIP Problem 14238133 Vitamin D deficiency (E55.9) Active confirmed Will send script for 50,000 units Problem Hemorrhoids (92227554) Hemorrhoids (K64.9) Active confirmed 07/01/22 Gets intermitent bleeding Has a sentinel tag Problem 454007635 Annual physical exam (Z00.00) Active confirmed Problem 249921840292097 Ocular migraine with status migrainosus, not intractable (G43.801) Active confirmed 09/24/22 Started on Depakote by Dr. Almanza. Upped it to 1000 mg. Had dizziness Decreased to 500 mg. Had amazing response with oral steroids taper with the depakote. Willsee Dr. Retana after 7 weeks. ?Emgalty injection Problem 742475517 Chiari malformation type II (Q07.01) Active confirmed 07/01/22 Had repeat MRI done Shows 2mm descent of the tonsils as compared to last one in [address] [facility] neurologist Dr Barahona on 07/10/22 Gave him a copy of the MRI and my office notes Problem Chronic cluster headache (833182391) Intractable chronic cluster headache (G44.021) Active confirmed Saw neurologist Dr. Almanza on 07/08/22 He gave him Depakote ER and a course of tapering steroids. His neuro exam was unremarkable. 10/24/22 Will refill Rizatripan till he sees Dr Almanza on 11/04/22 Plan Of Treatment Pending Test Test Name Order Date Urinalysis, Complete 05/23/2022 Sedimentation Rate-Westergren 05/23/2022 MARLENY w/Reflex 05/23/2022 Lyme Ab/Western Blot Reflex 05/23/2022 Lipid Panel 05/23/2022 Chem-Comprehensive 05/23/2022 CBC 05/23/2022 URIC ACID 05/23/2022 VITAMIN D, 25-HYDROXY 05/23/2022 Insurance Providers Payer Name Payer Address Payer Phone Subscriber Number Group Number Insured Name Patient Relationship to Insured Coverage Start Date Coverage End Date [address] [address] [phone] [id number] Tomi Wheeler Self - patient is the insured Medical (General) History Medical History History ICD Code Left sided Ocular migraine . started age 20 yrs , Starts with louis dots and then has severe left sided ocular headaches . Mother has similar twice a year. Brother Deepak had it in teens and it resolved Chiari Malformation. Seen on MRI done at [facility] 08/11/19 at [facility] . Advised follow up. Chronic marijuana use after work. Helps his migraine headache Denies any hx of head injury or concussion while playing sports or riding dirt bikes and motorcycles
[2024-05-17 11:37] LABS: TSH reflex Free T4 1.02 uIU/mL (0.32-4.0)
[2024-05-17 11:40] LABS: Folate 10.5 ng/mL (> or = 4.0); Vitamin B12 925 pg/mL (200-900)
== END 2024-05-17 09:30 | disposition home or self-care (01) ==
LOC: HO.LAB 09:29
PROVIDERS: PCP Internal Medicine; Visit Provider Registered Nurse
DX: R41.3 Other amnesia (principal)
CPT/HCPCS: 36415; 82607; 82746; 84443

== ENCOUNTER 2024-05-28 07:18 | Outpatient (REF) | payer OTHER, SELFPAY ==
--- NOTE | ~2024-05-28 | MR_ITS ---
EXAMINATION: MR BRAIN WITHOUT IV CONTRAST HISTORY: MEMORY CHANGE, HEADACHE TECHNIQUE: Sagittal T1, and axial T1, FLAIR, T2, gradient echo, and diffusion weighted MR images of the brain were obtained. COMPARISON: None FINDINGS: The cerebellar tonsils extend approximately 8 mm below the level of the foramen magnum, consistent with Chiari I malformation. The brain parenchyma is otherwise unremarkable, demonstrating normal resendiz/white differentiation. No foci of abnormal signal intensity are identified. The ventricular system is normal in size and configuration. There is no mass effect or midline shift. No intra or extra-axial fluid collections are identified. There are no foci of restricted diffusion. There is mild mucosal thickening in the bilateral maxillary sinuses. The visualized paranasal sinuses are clear. MR/MR head/brain wo con IMPRESSION: Findings consistent with Chiari I malformation as described. Otherwise unremarkable MRI of the brain without contrast. Electronically signed by: David Abad MD 05/28/2024 08:28 AM EDT
== END 2024-05-28 07:19 | disposition home or self-care (01) ==
LOC: HO.MRI 07:18
PROVIDERS: PCP Internal Medicine; Visit Provider Registered Nurse
DX: G44.009 Cluster headache syndrome, unspecified, not intractable (principal)
CPT/HCPCS: 70551

== ENCOUNTER → 2024-05-28 07:25 | Outpatient (BNV) | payer OTHER, SELFPAY | PROVIDERS: PCP Internal Medicine; Visit Provider Radiology Diagnostic Radiology | DX: R41.82 Altered mental status, unspecified (principal); R51.9 Headache, unspecified | CPT/HCPCS: 70551 ==

== ENCOUNTER 2024-06-14 15:41 | Outpatient (REF) | payer OTHER, SELFPAY ==
[2024-06-14 15:51] LABS: MANUAL DIFF FLAG NO
[2024-06-14 17:07] LABS: Basophils Absolute Auto 0.1 X10*3/uL (0.0-0.2); Basophils Percent Auto 1.5 % (0-2); Eosinophils Absolute Auto 0.3 X10*3/uL (0.0-0.4); Hemoglobin 13.6 g/dl (14.0-18.0); Imm Gran Abs Auto 0.02 X10*3/uL (0.00-0.03); Imm Gran Pct Auto 0.3 % (0.0-0.4); Lymphocytes Absolute Auto 2.4 X10*3/uL (1.2-4.9); Lymphocytes Percent Auto 36.1 % (20-40); Mean Corpuscular HGB Conc 33.2 g/dl (31.0-36.0); Mean Corpuscular Hemoglobin 31.9 pg (27.0-33.0); Mean Platelet Volume 10.2 fL (9.4-12.4); Monocytes Absolute Auto 0.8 X10*3/uL (0.1-1.2); Monocytes Percent Auto 11.2 % (2-11); Neutrophils Absolute Auto 3.1 x10*3/uL (2.0-8.3); Neutrophils Percent Auto 45.9 % (45-73); Platelet Count 208 X10*3/uL (160-400); Red Blood Count 4.27 X10*6/uL (4.60-5.80); Red Cell Distribution Width 12.5 % (11.0-16.0); White Blood Count 6.8 X10*3/uL (4.8-10.8)
--- OUTSIDE RECORDS SUMMARY | 2024-06-14 17:36 | XMS_ITS | Clinical Summary ---
Author Organization [facility] it Address [address] [place] [address] Care Team Providers Care Informal Waiter/Waitress Name Role Phone Memo Leon MD Primary Care Provider [phone] Social History Tobacco Use Types Packs/Day Years [...] age to complete this topic Care Teams Informal Waiter/Waitress Relationship Specialty Start Date End Date Memo Leon MD PCP - General 07/02/22
--- OUTSIDE RECORDS SUMMARY | 2024-06-14 17:36 | XMS_ITS | Clinical Summary ---
Author Organization [facility] Address [address] [place] [address] Care Team Providers Care Etl Manager Name Role Phone Memo Leno Primary Care Provider [phone] Allergies No known active allergies Medications rizatriptan BATTERY CHECKER (MAXALT-BATTERY CHECKER) 10 mg disintegrating tablet SMARTSI Tablet(s) By [...] patient's age to complete this topic Insurance [facility] Care Teams Etl Manager Relationship Specialty Start Date End Date Memo Leon [address] [place] [address] PCP - General Internal Medicine 03/08/23
--- OUTSIDE RECORDS SUMMARY | 2024-06-14 17:36 | XMS_ITS | Referral Summary ---
Author Organization [facility] Address [address] [place] [address] Care Team Providers Care Tree Trimmer Helper Name Role Phone Memo Leon Primary Care Provider [phone] Allergies No known active allergies Medications rizatriptan CONTAINER REPAIRER (MAXALT-CONTAINER REPAIRER) 10 mg disintegrating tablet SMARTSI Tablet(s) By [...] Plan of Treatment Not on file Insurance [facility] Care Teams Tree Trimmer Helper Relationship Specialty Start Date End Date Memo Leon [address] [place] [address] PCP - General Internal Medicine 03/08/23
--- OUTSIDE RECORDS SUMMARY | 2024-06-14 17:36 | XMS_ITS | Clinical Summary ---
Author Organization [facility] Address [address] [place] [address] Care Team Providers Care Metal Spray Operator Name Role Phone Ana Hester MD Primary Care Provider [phone] Allergies No known active allergies Medications Medication [...] age to complete this topic Care Teams Metal Spray Operator Relationship Specialty Start Date End Date Ana Hester MD [address] [facility] [address] [place] [address] PCP - General Harness Placer 10/04/17
== END 2024-06-14 15:42 | disposition home or self-care (01) ==
LOC: HO.LAB 15:41
PROVIDERS: PCP Internal Medicine; Visit Provider Registered Nurse
DX: R42 Dizziness and giddiness (principal); R41.3 Other amnesia
CPT/HCPCS: 36415; 85025